=== PATIENT | female | born 1990 | race Caucasian/White ===

== ENCOUNTER → 2019-05-13 | Outpatient (CLI) | payer OTHER | LOC: M LAB 11:37 | PROVIDERS: ATTEND Physician Assistant Medical | DX: A37.90 Whooping cough, unspecified species without pneumonia (principal) ==

== ENCOUNTER → 2019-05-21 | Outpatient (REF) | payer OTHER | LOC: M SFHCWAGY 09:51 | PROVIDERS: ATTEND Nurse Practitioner Women's Health | DX: Z12.4 Encounter for screening for malignant neoplasm of cervix (principal) ==

== ENCOUNTER → 2019-06-02 | Outpatient (REF) | payer OTHER | LOC: M SFHCWAGY 15:02 | PROVIDERS: ATTEND Nurse Practitioner Women's Health | DX: R87.613 High grade squamous intraepithelial lesion on cytologic smear of cervix (HGSIL) (principal) ==

== ENCOUNTER → 2019-06-24 | Outpatient (CLI) | payer OTHER ==
--- NOTE | 2019-06-24 10:20 | REPPI ---
Clinical: Lumbago. Technique: AP, lateral, bilateral oblique, and coned-down views. Findings: Alignment and lordosis is maintained. The vertebral bodies including transverse process and spinous processes are intact and normal. There is no evidence for acute fracture / compression injury or subluxation. No evidence for spondylolysis or spondylolisthesis. No significant degenerative change is noted. Impression: Normal lumbosacral spine radiograph series. Electronically Signed by Pedro Iraheta MD 06/24/2019 10:12 A
== END ==
LOC: M PLAIMG 09:56
PROVIDERS: ATTEND Physician Assistant Medical
DX: M51.26 Other intervertebral disc displacement, lumbar region (principal)

== ENCOUNTER → 2019-09-24 | Outpatient (REF) | payer OTHER ==
[2019-09-24 12:12] LABS: HEMATOCRIT 38.6 % (36.0-47.0); HEMOGLOBIN 12.5 g/dl (12.0-15.5); RED BLOOD COUNT 4.18 10^6/uL (4.00-5.40); WHITE BLOOD COUNT 7.3 10^3/uL (4.0-10.0)
[2019-09-24 12:13] LABS: BASO # 0.1 10^3/uL (0.0-0.2); BASO % 1.1 % (0.0-1.0); EOS # 0.1 10^3/uL (0.0-0.5); EOS % 1.9 % (0.0-3.0); LYMPH # 2.5 10^3/uL (1.5-5.0); LYMPH % 34.7 % (24.0-44.0); MEAN CORPUSCULAR HEMOGLOBIN 29.9 pg (27.0-33.0); MEAN CORPUSCULAR HGB CONC 32.4 g/dl (32.0-36.5); MEAN CORPUSCULAR VOLUME 92.3 fl (80.0-96.0); MONO # 0.4 10^3/uL (0.0-0.8); MONO % 6.1 % (0.0-5.0); NEUTROPHILS # 4.1 10^3/uL (1.5-8.5); NEUTROPHILS % 55.9 % (36.0-66.0); PLATELET COUNT, AUTOMATED 205 10^3/uL (150-450)
[2019-09-24 12:35] LABS: ALT/SGPT 14 U/L (12-78); BILIRUBIN,TOTAL 0.5 MG/DL (0.2-1.0); BLOOD UREA NITROGEN 7 MG/DL (7-18); CARBON DIOXIDE LEVEL 29 MEQ/L (21-32); CHLORIDE LEVEL 106 MEQ/L (98-107); CHOLESTEROL LEVEL 161 MG/DL (<200); CHOLESTEROL RISK RATIO 2.639 (<5); CREATININE FOR GFR 0.74 MG/DL (0.55-1.30); GLOMERULAR FILTRATION RATE > 60.0 (>60); GLUCOSE, FASTING 92 MG/DL (70-100); HDL CHOLESTEROL 61 MG/DL (>40); LDL CHOLESTEROL 86 MG/DL (<100); NON-HDL-C 100 MG/DL; POTASSIUM SERUM 4.3 MEQ/L (3.5-5.1); SODIUM LEVEL 139 MEQ/L (136-145); TOTAL PROTEIN 6.9 GM/DL (6.4-8.2); TRIGLYCERIDES LEVEL 71 MG/DL (<150)
== END ==
LOC: M SFHCPLAZ 08:56
PROVIDERS: ATTEND Physician Assistant Medical
DX: Z13.220 Encounter for screening for lipoid disorders (principal); M51.26 Other intervertebral disc displacement, lumbar region

== ENCOUNTER → 2020-05-24 | Outpatient (REF) | payer OTHER | LOC: M SFHCWAGY 12:44 | PROVIDERS: ATTEND Nurse Practitioner Women's Health | DX: Z12.4 Encounter for screening for malignant neoplasm of cervix (principal); R87.612 Low grade squamous intraepithelial lesion on cytologic smear of cervix (LGSIL); Z87.42 Personal history of other diseases of the female genital tract | CPT/HCPCS: 87624; G0123; G0463 ==

== ENCOUNTER → 2020-06-21 | Outpatient (REF) | payer OTHER | LOC: M SFHCWAGY 13:13 | PROVIDERS: ATTEND Nurse Practitioner Women's Health | DX: R87.612 Low grade squamous intraepithelial lesion on cytologic smear of cervix (LGSIL) (principal); R87.810 Cervical high risk human papillomavirus (HPV) DNA test positive ==

== ENCOUNTER 2020-09-30 12:26 | Day surgery (SDC) | payer OTHER ==
[~2020-09-30] VITALS: Ht 162.6 cm; Wt 72.6 kg
[~2020-09-30 12:26] MED LIST: AMPH1CAP16 PO; BUPR1TAB52 PO; LIDOCAINE 1% MDV 20ML VIAL SQ PRN; LR 1,000 ML IV ONE
[2020-09-30 13:08] LABS: HEMATOCRIT 35.6 % (36.0-47.0); HEMOGLOBIN 11.7 g/dl (12.0-15.5); MEAN CORPUSCULAR HEMOGLOBIN 30.3 pg (27.0-33.0); MEAN CORPUSCULAR HGB CONC 32.9 g/dl (32.0-36.5); MEAN CORPUSCULAR VOLUME 92.2 fl (80.0-96.0); PLATELET COUNT, AUTOMATED 231 10^3/uL (150-450); RED BLOOD COUNT 3.86 10^6/uL (4.00-5.40); WHITE BLOOD COUNT 8.5 10^3/uL (4.0-10.0)
[2020-09-30 13:34] LABS: HCG, SERUM QUALITATIVE NEGATIVE (NEGATIVE)
[2020-09-30] MEDS ORDERED: propofoL 200 MG/20 ML VIAL As Ordered ONE ×2 (13:39→15:08)
[2020-09-30] MEDS ORDERED: LIDOCAINE 2% 100MG/5ML SDV (FOR ANES.) As Ordered ONE (13:39)
[2020-09-30] MEDS ORDERED: MIDAZOLAM INJ 2MG/2ML VIAL (J2250 PER 1MG) As Ordered ONE (13:39)
[2020-09-30] MEDS ORDERED: IODINE STRONG SOLN 15 ML BTL As Ordered ONE (14:29)
[2020-09-30] MEDS ORDERED: LIDOCAINE W/EPINEPHRINE 1% 20ML VIAL As Ordered ONE (14:29)
[2020-09-30] MEDS ORDERED: SILVER NITRATE APPLICATOR As Ordered ONE (14:30)
[2020-09-30] MEDS ORDERED: KETOROLAC 60MG 2ML VIAL As Ordered ONE (15:08)
[2020-09-30 15:35] VITALS: BP 119/56
--- NOTE | 2020-09-30 15:49 | ROOPDOC ---
[facility] Report Of Operation Report of Operation DATE OF OPERATION: 09/30/2020 PREOPERATIVE DIAGNOSIS: CHARMAINE-1 with high-grade dysplasia component POSTOPERATIVE DIAGNOSIS: Same PROCEDURE PERFORMED: Loop electrosurgical excision procedure (LEEP) SURGEON: Yahir Luna DO SCRAPER OPERATOR: None. ANESTHESIA: Intravenous (IV) sedation with local anesthesia/paracervical block. SPECIMEN(S) SENT TO PATHOLOGY: Bottom half of the cervix with squamocolumnar junction. Top half of the cervix with the squamocolumnar junction. ESTIMATED BLOOD LOSS: 10 mL. FLUIDS PLACED: 800 mL. DRAINS: In and out catheter, 50 mL. URINE OUTPUT: None. COMPLICATIONS: None. ANTIBIOTICS: None indicated. INTRAOPERATIVE FINDINGS: INDICATIONS: CHARMAINE-1, with evidence of high-grade dysplasia in the same colposcopy directed cervical biopsy. DESCRIPTION OF PROCEDURE: The patient was counseled and consented on the risks, benefits, indications, and alternatives of the procedure. Informed consent was obtained. She was taken to the operating room with an IV running in placed on the operating table and then dorsal supine position. Anesthesia was found to be adequate. She was placed in the high lithotomy position. She was prepared and draped in normal sterile fashion. Time-out was performed per protocol. The bladder was drained with sterile in and out catheter. A coated Graves speculum was placed into the vagina with good visualization of the cervix. The cervix was coated with acetic acid and the dysplasia was evident even without colposcopy. The size 20 mm x 8 mm loop was used to excise a circumferential portion of cervix at the level of the squamocolumnar junction. The specimen was sent to pathology for permanent section. The remaining raw cervix was cauterized with a roller ball cautery. Excellent hemostasis was noted. Monsel solution was applied to ensure hemostasis. Paracervical block was performed for postoperative comfort. Ten mL of 1% Lidocaine with epinephrine used. Sponge, needle, and instrument counts were correct per protocol. The patient tolerated the entire procedure very well. She was transferred to the PACU in good and stable condition. YAHIR LUNA DO Sep 30, 2020 15:49
== END 2020-09-30 15:46 | disposition home or self-care (01) ==
LOC: M SDC 12:26
PROVIDERS: ATTEND Obstetrics & Gynecology
DX: N87.1 Moderate cervical dysplasia (principal); Z88.2 Allergy status to sulfonamides; F41.9 Anxiety disorder, unspecified; Z79.899 Other long term (current) drug therapy
CPT/HCPCS: 36415; 57522; 84703; 85027; 86850; 86900; 86901; 88307; J1885; J2250